=== PATIENT | female | born 1935 | race Caucasian/White ===

== ENCOUNTER 2017-04-08 14:53 | Inpatient (IN) | payer MEDICARE ==
[2017-04-08] MEDS ORDERED: ATORVASTATIN CALCIUM 80 MG TABLET PO SCH (19:00)
[2017-04-08] MEDS: DONEPEZIL HCL 5 MG TABLET PO SCH ×2 (19:29→21:22)
[2017-04-08] MEDS: APIXABAN 2.5 MG TABLET PO SCH ×2 (19:30→21:22)
[2017-04-08] MEDS: LEVOTHYROXINE SODIUM 25 MCG TABLET PO SCH ×2 (19:32)
[2017-04-08] MEDS: CHOLESTYRAMINE (WITH SUGAR) 4 GM PACKET PO SCH (21:14)
[2017-04-08] MEDS: HYDROcodone /APAP 5/325 1 EACH TABLET PO PRN (21:21)
[2017-04-08] MEDS: MEMANTINE HCL 10 MG TABLET PO SCH (21:22)
[2017-04-08] MEDS: FERROUS SULFATE 325 MG TABLET PO SCH (21:22)
[2017-04-08] MEDS: SENNOSIDES/DOCUSATE SODIUM 1 EACH TABLET PO SCH (21:22)
[2017-04-08] MEDS: SIMVASTATIN 20 MG TABLET PO SCH (21:22)
[2017-04-08 22:01] VITALS: BMI 34.2
[2017-04-09] MEDS ORDERED: FOLIC ACID 1 MG TABLET PO ONE (03:49)
[2017-04-09] MEDS: LEVOTHYROXINE SODIUM 25 MCG TABLET PO SCH ×2 (05:45→05:46)
[2017-04-09 07:05] LABS: BASOPHILS % 0.7 (0.0-1.5); EOSINOPHILS % 3.4 % (0.0-6.8); MEAN CORPUSCULAR HEMOGLOBIN 29.6 pg (28.0-34.0); MEAN CORPUSCULAR VOLUME 88.2 fl (80.0-100.0); MONOCYTES % 7.8 % (0.0-11.0)
[2017-04-09 07:19] LABS: eGFR (African) > 60; eGFR (Non-African) > 60
[2017-04-09] MEDS: LISINOPRIL 20 MG TABLET PO SCH (08:05)
[2017-04-09] MEDS: CITALOPRAM HYDROBROMIDE 20 MG TABLET PO SCH (08:05)
[2017-04-09] MEDS: APIXABAN 2.5 MG TABLET PO SCH ×2 (08:05→19:54)
[2017-04-09] MEDS: MEMANTINE HCL 10 MG TABLET PO SCH ×2 (08:05→19:53)
[2017-04-09] MEDS: MULTIVITAMIN 1 EACH TABLET PO SCH (08:06)
[2017-04-09] MEDS: SENNOSIDES/DOCUSATE SODIUM 1 EACH TABLET PO SCH ×2 (08:06→19:53)
[2017-04-09] MEDS: HYDROcodone /APAP 5/325 1 EACH TABLET PO PRN ×2 (08:12→17:42)
--- NOTE | 2017-04-09 08:54 | History and Physical Report ---
CHIEF COMPLAINT: Right femoral neck fracture. HISTORY OF PRESENT ILLNESS: This is an 81-year-old female who on April 03 was reaching down to pick something up at home or she may have had a vagal episode, but because of her dementia, it is very difficult to tell, but she did have a fall with immediate pain and a valgus deformity of her right hip. She was brought to the emergency room where she was noted to have a right hip fracture. She was taken to the operating room on April [address] Peacock at [facility] and had a right bipolar hemiarthroplasty done because of this fracture. Her postoperative course has actually been fairly unremarkable. She has not had very much pain. Although she has dementia, she has not had significant worsening of that. She remains extremely pleasant. She had no postoperative problems. Her hemoglobin has been stable with the most recent one having been done yesterday at 9.0. We will check that again tomorrow to make sure it is not dropping significantly. PAST MEDICAL HISTORY: Her past medical history is notable for: 1. History of allergic rhinitis. 2. Ankle edema. 3. Dementia. 4. Hyperlipidemia. 5. Hypothyroidism. 6. Irritable bowel syndrome. 7. Macular degeneration. 8. History of uterine cancer. PAST SURGICAL HISTORY: 1. Hysterectomy for uterine cancer. 2. Open reduction and internal fixation of right shoulder. 3. Right bipolar arthroplasty of the right hip. 4. Retinal laser surgery. 5. Vaginal delivery. CURRENT MEDICATIONS: 1. Acetaminophen/hydrocodone 5/325 mg one-half tablet p.o. every 4 hours p.r.n. pain. 2. Eliquis 2.5 mg p.o. b.i.d. 3. Senokot S 1 p.o. b.i.d. 4. Tylenol 325 mg p.o. every 4 hours p.r.n. pain. 5. Atorvastatin 10 mg daily. 6. Cholestyramine 4 grams by packet 1 b.i.d. 7. Citalopram 20 mg daily. 8. Donepezil 10 mg p.o. daily. 9. Ferrous sulfate 325 mg p.o. daily. 10. Levothyroxine 88 mcg daily. 11. Lisinopril 20 mg daily. 12. Namenda 10 mg p.o. b.i.d. 13. Multivitamin once daily. ALLERGIES: Tetracycline. SOCIAL HISTORY: She is a . Her [birth year] 07, 2015. She lives by herself. She is a [employer]. She is retired. She has very good support from her son, Tone, who lives in [place]. FAMILY HISTORY: Father at age 85 from arteriosclerosis and dementia. Mother in a fire when Mandy was only 3 years old. REVIEW OF SYSTEMS: She says she is actually not having very much pain. When I discussed her case with the resident today, he said that she had taken actually very little pain medication. She was participating in therapy there at the [facility] very well. She has had no fever, chills, nausea, or vomiting. Her hip pain is well controlled. PHYSICAL EXAMINATION: General: This is a very pleasant 81-year-old female who is alert and oriented. She appears to be in no acute distress. She is extremely talkative and eager to converse. Vital Signs: Her blood pressure is up a little bit at 159/64. The rest of her vitals have not yet been taken. HEENT: Shows her head to be normocephalic and atraumatic. Her hair is dyed. Her mucous membranes are moist. Her dentition looks like she has had cap come off on her right upper incisor just lateral to the medial incisor on the right. She has quite a bit of bridge and dental work. Neck: No JVD. No carotid bruits. No thyroid masses. Lungs: Clear. Heart: She has about a 2 over 6 systolic ejection murmur. Breast: Formal breast examination is deferred. Abdomen: Soft. No guarding or rebound. She has an infraumbilical scar, assuming that is from her hysterectomy. No CVA tenderness is noted. Extremities: Right hip wound is actually well approximated. It does not have any bleeding. No drainage. The bandage is fairly dry and certainly surrounding skin erythema. The alignment of her hip appears to be very good. The contralateral hip shows no evidence of any trauma. There is some bruising around the incision site. Both knees have some osteoarthritic changes but no scars to suggest previous knee replacement. Extremities are warm and well perfused. There is about 1+ edema bilaterally, a little bit worse on the right than on the left. Easily palpable dorsalis pedis and posterior tibial pulses are identified. ASSESSMENT: 1. Right hip fracture with result in bipolar arthroplasty. 2. Dementia, stable. 3. Hyperlipidemia. 4. Depression, currently on Citalopram. 5. Hypothyroidism. 6. Hypertension. 7. Macular degeneration. PLAN: 1. Physical therapy and occupational therapy are engaged. 2. She is currently on Eliquis 2.5 mg p.o. b.i.d. for DVT prophylaxis, as well as LOBO hose are placed. 3. We will discuss with Dr. Peacock as far as when he would like to have her stitches taken out of her right hip. 4. Her medications are all entered. MTDD
[2017-04-09] MEDS: CHOLESTYRAMINE (WITH SUGAR) 4 GM PACKET PO SCH (10:38)
[2017-04-09] MEDS: FERROUS SULFATE 325 MG TABLET PO SCH ×2 (10:38→19:53)
[2017-04-09] MEDS: ACETAMINOPHEN 325 MG TABLET PO PRN (11:05)
[2017-04-09] MEDS: DONEPEZIL HCL 5 MG TABLET PO SCH (19:53)
[2017-04-09] MEDS: SIMVASTATIN 20 MG TABLET PO SCH (19:57)
[2017-04-10] MEDS: HYDROcodone /APAP 5/325 1 EACH TABLET PO PRN ×3 (04:54→19:24)
[2017-04-10] MEDS: LEVOTHYROXINE SODIUM 25 MCG TABLET PO SCH ×2 (05:57→05:58)
[2017-04-10] MEDS: ACETAMINOPHEN 325 MG TABLET PO PRN (09:07)
[2017-04-10] MEDS: MEMANTINE HCL 10 MG TABLET PO SCH ×2 (09:09→19:25)
[2017-04-10] MEDS: APIXABAN 2.5 MG TABLET PO SCH ×2 (09:09→19:24)
[2017-04-10] MEDS: SENNOSIDES/DOCUSATE SODIUM 1 EACH TABLET PO SCH ×2 (09:10→19:25)
[2017-04-10] MEDS: CITALOPRAM HYDROBROMIDE 20 MG TABLET PO SCH (09:10)
[2017-04-10] MEDS: LISINOPRIL 20 MG TABLET PO SCH (09:11)
[2017-04-10] MEDS: MULTIVITAMIN 1 EACH TABLET PO SCH (09:12)
[2017-04-10] MEDS: CHOLESTYRAMINE (WITH SUGAR) 4 GM PACKET PO SCH (11:56)
[2017-04-10] MEDS: FERROUS SULFATE 325 MG TABLET PO SCH ×2 (11:56→19:24)
[2017-04-10] MEDS: DONEPEZIL HCL 5 MG TABLET PO SCH (19:24)
[2017-04-10] MEDS: SIMVASTATIN 20 MG TABLET PO SCH (19:25)
[2017-04-11] MEDS: LEVOTHYROXINE SODIUM 25 MCG TABLET PO SCH ×2 (06:35)
[2017-04-11] MEDS: APIXABAN 2.5 MG TABLET PO SCH ×2 (07:34→18:47)
[2017-04-11] MEDS: CITALOPRAM HYDROBROMIDE 20 MG TABLET PO SCH (07:35)
[2017-04-11] MEDS: MEMANTINE HCL 10 MG TABLET PO SCH ×2 (07:35→18:47)
[2017-04-11] MEDS: LISINOPRIL 20 MG TABLET PO SCH (07:35)
[2017-04-11] MEDS: MULTIVITAMIN 1 EACH TABLET PO SCH (07:36)
[2017-04-11] MEDS: SENNOSIDES/DOCUSATE SODIUM 1 EACH TABLET PO SCH ×2 (07:36→18:47)
[2017-04-11] MEDS: ACETAMINOPHEN 325 MG TABLET PO PRN ×2 (07:38→13:02)
[2017-04-11] MEDS: HYDROcodone /APAP 5/325 1 EACH TABLET PO PRN ×2 (09:05→18:45)
[2017-04-11] MEDS: CHOLESTYRAMINE (WITH SUGAR) 4 GM PACKET PO SCH (11:07)
[2017-04-11] MEDS: FERROUS SULFATE 325 MG TABLET PO SCH ×2 (11:07→18:46)
[2017-04-11] MEDS: SIMVASTATIN 20 MG TABLET PO SCH (18:47)
[2017-04-11] MEDS: DONEPEZIL HCL 5 MG TABLET PO SCH (18:47)
[2017-04-12] MEDS: ACETAMINOPHEN 325 MG TABLET PO PRN (03:36)
[2017-04-12] MEDS: LEVOTHYROXINE SODIUM 25 MCG TABLET PO SCH ×2 (05:57)
[2017-04-12] MEDS: APIXABAN 2.5 MG TABLET PO SCH ×2 (07:46→20:40)
[2017-04-12] MEDS: SENNOSIDES/DOCUSATE SODIUM 1 EACH TABLET PO SCH ×2 (07:46→20:39)
[2017-04-12] MEDS: MEMANTINE HCL 10 MG TABLET PO SCH ×2 (07:46→20:40)
[2017-04-12] MEDS: MULTIVITAMIN 1 EACH TABLET PO SCH (07:47)
[2017-04-12] MEDS: LISINOPRIL 20 MG TABLET PO SCH (07:47)
[2017-04-12] MEDS: CITALOPRAM HYDROBROMIDE 20 MG TABLET PO SCH (10:55)
[2017-04-12] MEDS: FERROUS SULFATE 325 MG TABLET PO SCH ×2 (11:11→17:37)
[2017-04-12] MEDS: CHOLESTYRAMINE (WITH SUGAR) 4 GM PACKET PO SCH (11:13)
[2017-04-12] MEDS: SIMVASTATIN 20 MG TABLET PO SCH (20:39)
[2017-04-12] MEDS: DONEPEZIL HCL 5 MG TABLET PO SCH (20:40)
[2017-04-13] MEDS: LEVOTHYROXINE SODIUM 25 MCG TABLET PO SCH ×2 (06:13)
[2017-04-13] MEDS: MULTIVITAMIN 1 EACH TABLET PO SCH (09:58)
[2017-04-13] MEDS: APIXABAN 2.5 MG TABLET PO SCH ×2 (09:58→20:06)
[2017-04-13] MEDS: MEMANTINE HCL 10 MG TABLET PO SCH ×2 (09:58→20:06)
[2017-04-13] MEDS: LISINOPRIL 20 MG TABLET PO SCH (09:58)
[2017-04-13] MEDS: CITALOPRAM HYDROBROMIDE 20 MG TABLET PO SCH (09:58)
[2017-04-13] MEDS: SENNOSIDES/DOCUSATE SODIUM 1 EACH TABLET PO SCH ×2 (09:58→20:07)
[2017-04-13] MEDS: FERROUS SULFATE 325 MG TABLET PO SCH ×2 (09:58→17:06)
[2017-04-13] MEDS: CHOLESTYRAMINE (WITH SUGAR) 4 GM PACKET PO SCH (12:00)
[2017-04-13] MEDS ORDERED: CHOLESTYRAMINE (WITH SUGAR) 4 GM PACKET PO SCH (19:00)
[2017-04-13] MEDS: SIMVASTATIN 20 MG TABLET PO SCH (20:06)
[2017-04-13] MEDS: DONEPEZIL HCL 5 MG TABLET PO SCH (20:06)
[2017-04-13] MEDS: ACETAMINOPHEN 325 MG TABLET PO PRN (20:08)
[2017-04-14] MEDS: LEVOTHYROXINE SODIUM 25 MCG TABLET PO SCH ×2 (06:09)
[2017-04-14] MEDS: CITALOPRAM HYDROBROMIDE 20 MG TABLET PO SCH (09:40)
[2017-04-14] MEDS: APIXABAN 2.5 MG TABLET PO SCH ×2 (09:40→19:49)
[2017-04-14] MEDS: MEMANTINE HCL 10 MG TABLET PO SCH ×2 (09:41→19:49)
[2017-04-14] MEDS: LISINOPRIL 20 MG TABLET PO SCH (09:42)
[2017-04-14] MEDS: MULTIVITAMIN 1 EACH TABLET PO SCH (09:43)
[2017-04-14] MEDS: SENNOSIDES/DOCUSATE SODIUM 1 EACH TABLET PO SCH ×2 (09:43→19:49)
[2017-04-14] MEDS: ACETAMINOPHEN 325 MG TABLET PO PRN (09:45)
[2017-04-14] MEDS: FERROUS SULFATE 325 MG TABLET PO SCH ×2 (12:02→18:03)
[2017-04-14] MEDS: CHOLESTYRAMINE (WITH SUGAR) 4 GM PACKET PO SCH (13:46)
[2017-04-14] MEDS: HYDROcodone /APAP 5/325 1 EACH TABLET PO PRN (19:48)
[2017-04-14] MEDS: SIMVASTATIN 20 MG TABLET PO SCH (19:48)
[2017-04-14] MEDS: DONEPEZIL HCL 5 MG TABLET PO SCH (19:49)
[2017-04-15] MEDS: LEVOTHYROXINE SODIUM 25 MCG TABLET PO SCH ×2 (06:05→06:06)
[2017-04-15] MEDS: APIXABAN 2.5 MG TABLET PO SCH ×2 (08:41→20:12)
[2017-04-15] MEDS: MEMANTINE HCL 10 MG TABLET PO SCH ×2 (08:41→20:12)
[2017-04-15] MEDS: LISINOPRIL 20 MG TABLET PO SCH (08:42)
[2017-04-15] MEDS: SENNOSIDES/DOCUSATE SODIUM 1 EACH TABLET PO SCH ×2 (08:42→20:12)
[2017-04-15] MEDS: MULTIVITAMIN 1 EACH TABLET PO SCH (08:42)
[2017-04-15] MEDS: CITALOPRAM HYDROBROMIDE 20 MG TABLET PO SCH (08:42)
[2017-04-15] MEDS: ACETAMINOPHEN 325 MG TABLET PO PRN ×2 (08:43→17:59)
[2017-04-15] MEDS: FERROUS SULFATE 325 MG TABLET PO SCH ×2 (12:00→20:12)
[2017-04-15] MEDS: CHOLESTYRAMINE (WITH SUGAR) 4 GM PACKET PO SCH (12:00)
[2017-04-15] MEDS: SIMVASTATIN 20 MG TABLET PO SCH (20:12)
[2017-04-15] MEDS: DONEPEZIL HCL 5 MG TABLET PO SCH (20:12)
[2017-04-16] MEDS: LEVOTHYROXINE SODIUM 25 MCG TABLET PO SCH ×2 (06:18)
[2017-04-16] MEDS: APIXABAN 2.5 MG TABLET PO SCH ×2 (08:31→20:38)
[2017-04-16] MEDS: CITALOPRAM HYDROBROMIDE 20 MG TABLET PO SCH (08:31)
[2017-04-16] MEDS: MEMANTINE HCL 10 MG TABLET PO SCH ×2 (08:31→20:38)
[2017-04-16] MEDS: SENNOSIDES/DOCUSATE SODIUM 1 EACH TABLET PO SCH ×2 (08:32→20:39)
[2017-04-16] MEDS: LISINOPRIL 20 MG TABLET PO SCH (08:32)
[2017-04-16] MEDS: MULTIVITAMIN 1 EACH TABLET PO SCH (08:33)
[2017-04-16] MEDS: ACETAMINOPHEN 325 MG TABLET PO PRN ×2 (08:35→20:40)
[2017-04-16] MEDS: CHOLESTYRAMINE (WITH SUGAR) 4 GM PACKET PO SCH (11:21)
[2017-04-16] MEDS: FERROUS SULFATE 325 MG TABLET PO SCH ×2 (11:21→18:42)
[2017-04-16] MEDS: DONEPEZIL HCL 5 MG TABLET PO SCH (20:37)
[2017-04-16] MEDS: SIMVASTATIN 20 MG TABLET PO SCH (20:39)
[2017-04-17] MEDS: LEVOTHYROXINE SODIUM 25 MCG TABLET PO SCH ×2 (06:23→06:24)
[2017-04-17] MEDS: ACETAMINOPHEN 325 MG TABLET PO PRN (08:21)
[2017-04-17] MEDS: APIXABAN 2.5 MG TABLET PO SCH ×2 (08:21→20:52)
[2017-04-17] MEDS: CITALOPRAM HYDROBROMIDE 20 MG TABLET PO SCH (08:21)
[2017-04-17] MEDS: SENNOSIDES/DOCUSATE SODIUM 1 EACH TABLET PO SCH ×2 (08:22→20:53)
[2017-04-17] MEDS: LISINOPRIL 20 MG TABLET PO SCH (08:22)
[2017-04-17] MEDS: MULTIVITAMIN 1 EACH TABLET PO SCH (08:22)
[2017-04-17] MEDS: MEMANTINE HCL 10 MG TABLET PO SCH ×2 (08:22→20:52)
[2017-04-17] MEDS: FERROUS SULFATE 325 MG TABLET PO SCH ×2 (10:57→18:23)
[2017-04-17] MEDS: CHOLESTYRAMINE (WITH SUGAR) 4 GM PACKET PO SCH (10:57)
[2017-04-17] MEDS: DONEPEZIL HCL 5 MG TABLET PO SCH (20:51)
[2017-04-17] MEDS: SIMVASTATIN 20 MG TABLET PO SCH (20:53)
[2017-04-18] MEDS: LEVOTHYROXINE SODIUM 25 MCG TABLET PO SCH ×2 (06:19→06:20)
[2017-04-18] MEDS: APIXABAN 2.5 MG TABLET PO SCH ×2 (08:36→20:22)
[2017-04-18] MEDS: CITALOPRAM HYDROBROMIDE 20 MG TABLET PO SCH (08:36)
[2017-04-18] MEDS: ACETAMINOPHEN 325 MG TABLET PO PRN ×2 (08:36→20:23)
[2017-04-18] MEDS: MULTIVITAMIN 1 EACH TABLET PO SCH (08:37)
[2017-04-18] MEDS: MEMANTINE HCL 10 MG TABLET PO SCH ×2 (08:37→20:22)
[2017-04-18] MEDS: SENNOSIDES/DOCUSATE SODIUM 1 EACH TABLET PO SCH ×2 (08:37→20:22)
[2017-04-18] MEDS: LISINOPRIL 20 MG TABLET PO SCH (08:37)
[2017-04-18] MEDS: CHOLESTYRAMINE (WITH SUGAR) 4 GM PACKET PO SCH (11:15)
[2017-04-18] MEDS: FERROUS SULFATE 325 MG TABLET PO SCH ×2 (11:15→18:20)
[2017-04-18] MEDS: DONEPEZIL HCL 5 MG TABLET PO SCH (20:21)
[2017-04-18] MEDS: SIMVASTATIN 20 MG TABLET PO SCH (20:22)
[2017-04-19] MEDS: ACETAMINOPHEN 325 MG TABLET PO PRN ×2 (02:38→08:17)
[2017-04-19] MEDS: LEVOTHYROXINE SODIUM 25 MCG TABLET PO SCH ×2 (05:53)
[2017-04-19] MEDS: MEMANTINE HCL 10 MG TABLET PO SCH ×2 (08:18→20:37)
[2017-04-19] MEDS: LISINOPRIL 20 MG TABLET PO SCH (08:18)
[2017-04-19] MEDS: SENNOSIDES/DOCUSATE SODIUM 1 EACH TABLET PO SCH ×2 (08:18→20:36)
[2017-04-19] MEDS: MULTIVITAMIN 1 EACH TABLET PO SCH (08:18)
[2017-04-19] MEDS: CITALOPRAM HYDROBROMIDE 20 MG TABLET PO SCH (08:18)
[2017-04-19] MEDS: APIXABAN 2.5 MG TABLET PO SCH ×2 (08:18→20:37)
[2017-04-19] MEDS: CHOLESTYRAMINE (WITH SUGAR) 4 GM PACKET PO SCH (11:43)
[2017-04-19] MEDS: FERROUS SULFATE 325 MG TABLET PO SCH ×2 (11:43→18:30)
[2017-04-19] MEDS: SIMVASTATIN 20 MG TABLET PO SCH (20:36)
[2017-04-19] MEDS: DONEPEZIL HCL 5 MG TABLET PO SCH (20:37)
[2017-04-20] MEDS: LEVOTHYROXINE SODIUM 25 MCG TABLET PO SCH ×2 (06:17)
[2017-04-20] MEDS: APIXABAN 2.5 MG TABLET PO SCH ×2 (09:08→20:03)
[2017-04-20] MEDS: CITALOPRAM HYDROBROMIDE 20 MG TABLET PO SCH (09:08)
[2017-04-20] MEDS: MEMANTINE HCL 10 MG TABLET PO SCH ×2 (09:08→20:02)
[2017-04-20] MEDS: LISINOPRIL 20 MG TABLET PO SCH (09:10)
[2017-04-20] MEDS: SENNOSIDES/DOCUSATE SODIUM 1 EACH TABLET PO SCH ×2 (09:11→20:03)
[2017-04-20] MEDS: HYDROcodone /APAP 5/325 1 EACH TABLET PO PRN (09:11)
[2017-04-20] MEDS: MULTIVITAMIN 1 EACH TABLET PO SCH (09:11)
[2017-04-20] MEDS: FERROUS SULFATE 325 MG TABLET PO SCH ×2 (11:34→18:26)
[2017-04-20] MEDS: CHOLESTYRAMINE (WITH SUGAR) 4 GM PACKET PO SCH (11:38)
[2017-04-20] MEDS: DONEPEZIL HCL 5 MG TABLET PO SCH (20:02)
[2017-04-20] MEDS: SIMVASTATIN 20 MG TABLET PO SCH (20:03)
[2017-04-21] MEDS: LEVOTHYROXINE SODIUM 25 MCG TABLET PO SCH ×2 (06:17→06:18)
[2017-04-21] MEDS: APIXABAN 2.5 MG TABLET PO SCH ×2 (09:24→20:20)
[2017-04-21] MEDS: MEMANTINE HCL 10 MG TABLET PO SCH ×2 (09:25→20:20)
[2017-04-21] MEDS: CITALOPRAM HYDROBROMIDE 20 MG TABLET PO SCH (09:25)
[2017-04-21] MEDS: SENNOSIDES/DOCUSATE SODIUM 1 EACH TABLET PO SCH ×2 (09:25→20:20)
[2017-04-21] MEDS: LISINOPRIL 20 MG TABLET PO SCH (09:26)
[2017-04-21] MEDS: MULTIVITAMIN 1 EACH TABLET PO SCH (09:26)
[2017-04-21] MEDS: CHOLESTYRAMINE (WITH SUGAR) 4 GM PACKET PO SCH (11:49)
[2017-04-21] MEDS: FERROUS SULFATE 325 MG TABLET PO SCH ×2 (11:49→18:02)
[2017-04-21] MEDS: DONEPEZIL HCL 5 MG TABLET PO SCH (20:19)
[2017-04-21] MEDS: SIMVASTATIN 20 MG TABLET PO SCH (20:21)
[2017-04-22] MEDS: LEVOTHYROXINE SODIUM 25 MCG TABLET PO SCH ×2 (06:27)
[2017-04-22] MEDS: CITALOPRAM HYDROBROMIDE 20 MG TABLET PO SCH (08:05)
[2017-04-22] MEDS: LISINOPRIL 20 MG TABLET PO SCH (08:05)
[2017-04-22] MEDS: APIXABAN 2.5 MG TABLET PO SCH ×2 (08:05→20:44)
[2017-04-22] MEDS: MEMANTINE HCL 10 MG TABLET PO SCH ×2 (08:05→20:44)
[2017-04-22] MEDS: MULTIVITAMIN 1 EACH TABLET PO SCH (08:06)
[2017-04-22] MEDS: SENNOSIDES/DOCUSATE SODIUM 1 EACH TABLET PO SCH ×2 (08:06→20:45)
--- NOTE | 2017-04-22 08:21 | Inpatient Progress Note ---
Subjective - Required Recertification Statement I anticipate X number of days because-include discharge plan: 5 - Review of Systems Events since last encounter: Mandy is doing well with therapy. She has some anxiety. She remains very pleasant and wants to please therapy. She denies any pain. General: Denies: Chills HEENT: Denies: Head Aches Pulmonary: Denies: Dyspnea, Cough Cardiovascular: Denies: Chest Pain, Palpitations Gastrointestinal: Denies: Nausea, Vomiting, Abdominal Pain Genitourinary: Denies: Dysuria Musculoskeletal: Denies: Neck Pain Neurological: Confusion (at baseline). Denies: Weakness, Numbness Objective - Exam Vitals and I&O: Vital Signs Temp 98.4 F 04/21/17 20:19 Pulse 66 04/21/17 20:19 Resp 18 04/21/17 21:00 BP 110/41 04/21/17 20:19 Pulse Ox 92 04/21/17 20:19 Intake & Output 04/21/17 04/21/17 04/22/17 11:59 23:59 11:59 Intake Total 480 740 Balance 480 740 Weight 83.5 kg Intake: Oral 480 740 Other: Voiding Method Toilet Toilet # Voids 1 3 2 General: Alert, Oriented to Person, Oriented to Place, Oriented to Time, Cooperative HEENT: Atraumatic, Nose Mucous membr. moist/[place] Neck: Supple, No JVD Lungs: Clear to auscultation Cardiovascular: Regular rate, Normal S1, Normal S2 Abdomen: Normal bowel sounds Extremities: Other (trace edema in right leg) Neurological: Normal speech Psych/Mental Status: Appropriate Affect. No: Intact Judgment - Results Results: Laboratory Results WBC 9.54 K/ul (4.00-12.00) 04/09/17 06:40 RBC 3.27 M/ul (3.90-5.20) L 04/09/17 06:40 Hgb 9.7 g/dL (12.0-16.0) L 04/09/17 06:40 Hct 28.9 % (34.5-46.5) L 04/09/17 06:40 MCV 88.2 fl (80.0-100.0) 04/09/17 06:40 MCH 29.6 pg (28.0-34.0) 04/09/17 06:40 MCHC 33.6 g/dL (30.0-36.0) 04/09/17 06:40 RDW 13.1 % (11.3-14.3) 04/09/17 06:40 Plt Count 253 K/mm3 (130-400) 04/09/17 06:40 Neut % (Auto) 72.9 % (39.0-79.0) 04/09/17 06:40 Lymph % (Auto) 12.8 % (16.0-50.0) L 04/09/17 06:40 [place] % (Auto) 7.8 % (0.0-11.0) 04/09/17 06:40 Eos % (Auto) 3.4 % (0.0-6.8) 04/09/17 06:40 Baso % (Auto) 0.7 (0.0-1.5) 04/09/17 06:40 Neut # (Auto) 7.0 # k/uL (1.4-7.7) 04/09/17 06:40 Lymph # (Auto) 1.2 # k/uL (0.6-4.0) 04/09/17 06:40 [place] # (Auto) 0.8 # k/uL (0.0-0.9) 04/09/17 06:40 Eos # (Auto) 0.3 # k/uL (0.0-0.6) 04/09/17 06:40 Baso # (Auto) 0.1 # k/uL (0.0-0.5) 04/09/17 06:40 Reactive Lymphs % 2.3 % (0.0-5.0) 04/09/17 06:40 Reactive Lymphs # 0.2 # k/uL (0.0-0.8) 04/09/17 06:40 Sodium 133 mmol/L (137-145) L 04/09/17 06:40 Potassium 3.9 mmol/L (3.5-5.1) 04/09/17 06:40 Chloride 102 mmol/L (98-107) 04/09/17 06:40 Carbon Dioxide 26 mmol/L (22-30) 04/09/17 06:40 BUN 26 mg/dL (7-17) H 04/09/17 06:40 Creatinine 0.90 mg/dL (0.52-1.04) 04/09/17 06:40 Estimated Creat Clear 77 04/09/17 06:40 Est GFR ( Amer) > 60 (60-) 04/09/17 06:40 Est GFR (Non-Af Amer) > 60 (60-) 04/09/17 06:40 Glucose 97 mg/dL (74-106) 04/09/17 06:40 Calcium 7.9 mg/dL (8.4-10.2) L 04/09/17 06:40 Total Bilirubin 0.3 mg/dL (0.2-1.3) 04/09/17 06:40 AST 42 U/L (15-46) 04/09/17 06:40 ALT 28 U/L (13-69) 04/09/17 06:40 Alkaline Phosphatase 78 U/L (38-126) 04/09/17 06:40 Total Protein 6.0 g/dL (6.3-8.2) L 04/09/17 06:40 Albumin 2.9 g/dL (3.5-5.0) L 04/09/17 06:40 Assessment/Plan - Assessment/Plan (1) History of right hip replacement Status: Acute Current Visit: Yes Assessment: Doing well with therapy (2) Dementia Status: Acute Current Visit: Yes Qualifiers: Dementia type: unspecified type Dementia behavioral disturbance: without behavioral disturbance Qualified Code(s): F03.90 - Unspecified dementia without behavioral disturbance Assessment: Continue current medications
[2017-04-22] MEDS: CHOLESTYRAMINE (WITH SUGAR) 4 GM PACKET PO SCH (10:48)
[2017-04-22] MEDS: FERROUS SULFATE 325 MG TABLET PO SCH ×2 (10:48→18:03)
[2017-04-22] MEDS: ACETAMINOPHEN 325 MG TABLET PO PRN (10:51)
[2017-04-22] MEDS: DONEPEZIL HCL 5 MG TABLET PO SCH (20:44)
[2017-04-22] MEDS: SIMVASTATIN 20 MG TABLET PO SCH (20:45)
[2017-04-23] MEDS: LEVOTHYROXINE SODIUM 25 MCG TABLET PO SCH ×2 (06:27)
[2017-04-23] MEDS: CITALOPRAM HYDROBROMIDE 20 MG TABLET PO SCH (08:10)
[2017-04-23] MEDS: APIXABAN 2.5 MG TABLET PO SCH ×2 (08:10→19:28)
[2017-04-23] MEDS: MULTIVITAMIN 1 EACH TABLET PO SCH (08:11)
[2017-04-23] MEDS: SENNOSIDES/DOCUSATE SODIUM 1 EACH TABLET PO SCH ×2 (08:11→19:28)
[2017-04-23] MEDS: MEMANTINE HCL 10 MG TABLET PO SCH ×2 (08:11→19:29)
[2017-04-23] MEDS: LISINOPRIL 20 MG TABLET PO SCH (08:11)
[2017-04-23] MEDS: CHOLESTYRAMINE (WITH SUGAR) 4 GM PACKET PO SCH (11:27)
[2017-04-23] MEDS: FERROUS SULFATE 325 MG TABLET PO SCH ×2 (11:27→18:02)
[2017-04-23] MEDS: DONEPEZIL HCL 5 MG TABLET PO SCH (19:28)
[2017-04-23] MEDS: SIMVASTATIN 20 MG TABLET PO SCH (19:29)
[2017-04-23] MEDS: ACETAMINOPHEN 325 MG TABLET PO PRN (23:05)
[2017-04-24] MEDS: LEVOTHYROXINE SODIUM 25 MCG TABLET PO SCH ×2 (06:26→06:27)
[2017-04-24] MEDS: CITALOPRAM HYDROBROMIDE 20 MG TABLET PO SCH (09:42)
[2017-04-24] MEDS: APIXABAN 2.5 MG TABLET PO SCH ×2 (09:42→19:56)
[2017-04-24] MEDS: MEMANTINE HCL 10 MG TABLET PO SCH ×2 (09:42→19:56)
[2017-04-24] MEDS: ACETAMINOPHEN 325 MG TABLET PO PRN (09:42)
[2017-04-24] MEDS: SENNOSIDES/DOCUSATE SODIUM 1 EACH TABLET PO SCH ×2 (09:42→19:56)
[2017-04-24] MEDS: MULTIVITAMIN 1 EACH TABLET PO SCH (09:43)
[2017-04-24] MEDS: LISINOPRIL 20 MG TABLET PO SCH (09:43)
[2017-04-24] MEDS: CHOLESTYRAMINE (WITH SUGAR) 4 GM PACKET PO SCH (11:49)
[2017-04-24] MEDS: FERROUS SULFATE 325 MG TABLET PO SCH ×2 (11:49→18:41)
[2017-04-24] MEDS: SIMVASTATIN 20 MG TABLET PO SCH (19:56)
[2017-04-24] MEDS: DONEPEZIL HCL 5 MG TABLET PO SCH (19:58)
[2017-04-25] MEDS: LEVOTHYROXINE SODIUM 25 MCG TABLET PO SCH ×2 (05:34→05:35)
[2017-04-25] MEDS: APIXABAN 2.5 MG TABLET PO SCH ×2 (08:03→20:47)
[2017-04-25] MEDS: CITALOPRAM HYDROBROMIDE 20 MG TABLET PO SCH (08:03)
[2017-04-25] MEDS: LISINOPRIL 20 MG TABLET PO SCH (08:04)
[2017-04-25] MEDS: MULTIVITAMIN 1 EACH TABLET PO SCH (08:04)
[2017-04-25] MEDS: MEMANTINE HCL 10 MG TABLET PO SCH ×2 (08:04→20:47)
[2017-04-25] MEDS: SENNOSIDES/DOCUSATE SODIUM 1 EACH TABLET PO SCH ×2 (08:06→20:47)
[2017-04-25] MEDS: FERROUS SULFATE 325 MG TABLET PO SCH ×2 (10:52→18:07)
[2017-04-25] MEDS: CHOLESTYRAMINE (WITH SUGAR) 4 GM PACKET PO SCH ×2 (10:52→10:57)
[2017-04-25] MEDS ORDERED: IPRATROPIUM/ALBUTEROL SULFATE 3 ML AMPUL.NEB NEB ONE (15:24)
[2017-04-25] MEDS: SIMVASTATIN 20 MG TABLET PO SCH (20:47)
[2017-04-25] MEDS: DONEPEZIL HCL 5 MG TABLET PO SCH (20:47)
[2017-04-26] MEDS: LEVOTHYROXINE SODIUM 25 MCG TABLET PO SCH ×2 (06:19)
[2017-04-26] MEDS: CITALOPRAM HYDROBROMIDE 20 MG TABLET PO SCH (08:22)
[2017-04-26] MEDS: MULTIVITAMIN 1 EACH TABLET PO SCH (08:22)
[2017-04-26] MEDS: SENNOSIDES/DOCUSATE SODIUM 1 EACH TABLET PO SCH ×2 (08:23→20:25)
[2017-04-26] MEDS: LISINOPRIL 20 MG TABLET PO SCH (08:23)
[2017-04-26] MEDS: APIXABAN 2.5 MG TABLET PO SCH ×2 (08:24→20:24)
[2017-04-26] MEDS: MEMANTINE HCL 10 MG TABLET PO SCH ×2 (08:24→20:24)
[2017-04-26] MEDS: CHOLESTYRAMINE (WITH SUGAR) 4 GM PACKET PO SCH (11:25)
[2017-04-26] MEDS: FERROUS SULFATE 325 MG TABLET PO SCH ×2 (11:26→18:28)
[2017-04-26] MEDS: DONEPEZIL HCL 5 MG TABLET PO SCH (20:24)
[2017-04-26] MEDS: SIMVASTATIN 20 MG TABLET PO SCH (20:25)
[2017-04-26] MEDS: ACETAMINOPHEN 325 MG TABLET PO PRN (22:20)
[2017-04-27] MEDS: ACETAMINOPHEN 325 MG TABLET PO PRN ×2 (06:08→21:07)
[2017-04-27] MEDS: LEVOTHYROXINE SODIUM 25 MCG TABLET PO SCH ×2 (06:09)
[2017-04-27] MEDS: APIXABAN 2.5 MG TABLET PO SCH ×2 (08:48→21:05)
[2017-04-27] MEDS: LISINOPRIL 20 MG TABLET PO SCH (08:48)
[2017-04-27] MEDS: MULTIVITAMIN 1 EACH TABLET PO SCH (08:48)
[2017-04-27] MEDS: SENNOSIDES/DOCUSATE SODIUM 1 EACH TABLET PO SCH ×2 (08:49→21:05)
[2017-04-27] MEDS: MEMANTINE HCL 10 MG TABLET PO SCH ×2 (08:49→21:05)
[2017-04-27] MEDS: CITALOPRAM HYDROBROMIDE 20 MG TABLET PO SCH (08:49)
[2017-04-27] MEDS: FERROUS SULFATE 325 MG TABLET PO SCH ×2 (11:31→21:05)
[2017-04-27] MEDS: CHOLESTYRAMINE (WITH SUGAR) 4 GM PACKET PO SCH (11:31)
[2017-04-27] MEDS: DONEPEZIL HCL 5 MG TABLET PO SCH (21:05)
[2017-04-27] MEDS: SIMVASTATIN 20 MG TABLET PO SCH (21:05)
[2017-04-28] MEDS: ACETAMINOPHEN 325 MG TABLET PO PRN (04:53)
[2017-04-28] MEDS: LEVOTHYROXINE SODIUM 25 MCG TABLET PO SCH ×2 (04:53)
[2017-04-28] MEDS: APIXABAN 2.5 MG TABLET PO SCH ×2 (09:08→19:57)
[2017-04-28] MEDS: MEMANTINE HCL 10 MG TABLET PO SCH ×2 (09:08→19:58)
[2017-04-28] MEDS: CITALOPRAM HYDROBROMIDE 20 MG TABLET PO SCH (09:08)
[2017-04-28] MEDS: LISINOPRIL 20 MG TABLET PO SCH (09:09)
[2017-04-28] MEDS: SENNOSIDES/DOCUSATE SODIUM 1 EACH TABLET PO SCH ×2 (09:09→19:58)
[2017-04-28] MEDS: MULTIVITAMIN 1 EACH TABLET PO SCH (09:09)
[2017-04-28] MEDS: CHOLESTYRAMINE (WITH SUGAR) 4 GM PACKET PO SCH (11:39)
[2017-04-28] MEDS: FERROUS SULFATE 325 MG TABLET PO SCH ×2 (11:39→18:04)
[2017-04-28] MEDS: DONEPEZIL HCL 5 MG TABLET PO SCH (19:57)
[2017-04-28] MEDS: SIMVASTATIN 20 MG TABLET PO SCH (19:58)
[2017-04-29] MEDS: LEVOTHYROXINE SODIUM 25 MCG TABLET PO SCH ×2 (06:14)
[2017-04-29] MEDS: CITALOPRAM HYDROBROMIDE 20 MG TABLET PO SCH (09:13)
[2017-04-29] MEDS: APIXABAN 2.5 MG TABLET PO SCH ×2 (09:13→20:16)
[2017-04-29] MEDS: MEMANTINE HCL 10 MG TABLET PO SCH ×2 (09:13→20:16)
[2017-04-29] MEDS: LISINOPRIL 20 MG TABLET PO SCH (09:14)
[2017-04-29] MEDS: MULTIVITAMIN 1 EACH TABLET PO SCH (09:14)
[2017-04-29] MEDS: SENNOSIDES/DOCUSATE SODIUM 1 EACH TABLET PO SCH ×2 (09:14→20:17)
--- NOTE | 2017-04-29 10:31 | Inpatient Progress Note ---
Subjective - Required Recertification Statement I anticipate X number of days because-include discharge plan: 2 - Review of Systems Events since last encounter: Mandy is ambulating well currently. She still has some pain, but she can ambulate all the way from her room the the therapy room without any difficulty. She remains very pleasant and works hard with therapy. The plan is for her to go to [facility] on Friday morning and have a follow up with Dr. Peacock on Friday. General: Denies: Chills HEENT: Denies: Head Aches Pulmonary: Denies: Dyspnea Cardiovascular: Denies: Chest Pain Musculoskeletal: Leg Pain (right hip) Objective - Exam Vitals and I&O: Vital Signs Temp 98.2 F 04/29/17 09:00 Pulse 72 04/29/17 09:00 Resp 18 04/29/17 09:00 BP 183/86 04/29/17 09:00 Pulse Ox 94 04/29/17 09:00 Intake & Output 04/28/17 04/28/17 04/29/17 11:59 23:59 11:59 Intake Total 600 880 240 Balance 600 880 240 Weight 79.832 kg Intake: Oral 600 880 240 Other: Voiding Method Toilet Toilet # Voids 3 1 3 General: Alert, Oriented to Person, Oriented to Place HEENT: Atraumatic, PERRLA Neck: Supple Lungs: Normal air movement Cardiovascular: Regular rate Neurological: Other (tentative gait with ambulation with the walker) Psych/Mental Status: Mental status NL (at baseline) - Results Results: Laboratory Results WBC 9.54 K/ul (4.00-12.00) 04/09/17 06:40 RBC 3.27 M/ul (3.90-5.20) L 04/09/17 06:40 Hgb 9.7 g/dL (12.0-16.0) L 04/09/17 06:40 Hct 28.9 % (34.5-46.5) L 04/09/17 06:40 MCV 88.2 fl (80.0-100.0) 04/09/17 06:40 MCH 29.6 pg (28.0-34.0) 04/09/17 06:40 MCHC 33.6 g/dL (30.0-36.0) 04/09/17 06:40 RDW 13.1 % (11.3-14.3) 04/09/17 06:40 Plt Count 253 K/mm3 (130-400) 04/09/17 06:40 Neut % (Auto) 72.9 % (39.0-79.0) 04/09/17 06:40 Lymph % (Auto) 12.8 % (16.0-50.0) L 04/09/17 06:40 [place] % (Auto) 7.8 % (0.0-11.0) 04/09/17 06:40 Eos % (Auto) 3.4 % (0.0-6.8) 04/09/17 06:40 Baso % (Auto) 0.7 (0.0-1.5) 04/09/17 06:40 Neut # (Auto) 7.0 # k/uL (1.4-7.7) 04/09/17 06:40 Lymph # (Auto) 1.2 # k/uL (0.6-4.0) 04/09/17 06:40 [place] # (Auto) 0.8 # k/uL (0.0-0.9) 04/09/17 06:40 Eos # (Auto) 0.3 # k/uL (0.0-0.6) 04/09/17 06:40 Baso # (Auto) 0.1 # k/uL (0.0-0.5) 04/09/17 06:40 Reactive Lymphs % 2.3 % (0.0-5.0) 04/09/17 06:40 Reactive Lymphs # 0.2 # k/uL (0.0-0.8) 04/09/17 06:40 Sodium 133 mmol/L (137-145) L 04/09/17 06:40 Potassium 3.9 mmol/L (3.5-5.1) 04/09/17 06:40 Chloride 102 mmol/L (98-107) 04/09/17 06:40 Carbon Dioxide 26 mmol/L (22-30) 04/09/17 06:40 BUN 26 mg/dL (7-17) H 04/09/17 06:40 Creatinine 0.90 mg/dL (0.52-1.04) 04/09/17 06:40 Estimated Creat Clear 77 04/09/17 06:40 Est GFR ( Amer) > 60 (60-) 04/09/17 06:40 Est GFR (Non-Af Amer) > 60 (60-) 04/09/17 06:40 Glucose 97 mg/dL (74-106) 04/09/17 06:40 Calcium 7.9 mg/dL (8.4-10.2) L 04/09/17 06:40 Total Bilirubin 0.3 mg/dL (0.2-1.3) 04/09/17 06:40 AST 42 U/L (15-46) 04/09/17 06:40 ALT 28 U/L (13-69) 04/09/17 06:40 Alkaline Phosphatase 78 U/L (38-126) 04/09/17 06:40 Total Protein 6.0 g/dL (6.3-8.2) L 04/09/17 06:40 Albumin 2.9 g/dL (3.5-5.0) L 04/09/17 06:40 Assessment/Plan - Assessment/Plan (1) History of right hip replacement Status: Acute Current Visit: Yes Assessment: Recovering well (2) Dementia Status: Acute Current Visit: Yes Qualifiers: Dementia type: unspecified type Dementia behavioral disturbance: without behavioral disturbance Qualified Code(s): F03.90 - Unspecified dementia without behavioral disturbance Assessment: Chronic/stable
[2017-04-29] MEDS: ACETAMINOPHEN 325 MG TABLET PO PRN ×2 (10:51→23:15)
[2017-04-29] MEDS: CHOLESTYRAMINE (WITH SUGAR) 4 GM PACKET PO SCH (12:20)
[2017-04-29] MEDS: FERROUS SULFATE 325 MG TABLET PO SCH ×2 (12:20→20:16)
[2017-04-29] MEDS ORDERED: WHITE PET TP PRN ×2 (14:33→16:00)
[2017-04-29] MEDS ORDERED: LANOLIN TP PRN ×2 (14:33→16:00)
[2017-04-29] MEDS ORDERED: [UNRECOGNIZED DRUG - OTHER] TP PRN ×2 (14:33→16:00)
[2017-04-29] MEDS ORDERED: VITS A TP PRN ×2 (14:33→16:00)
[2017-04-29] MEDS: DONEPEZIL HCL 5 MG TABLET PO SCH (20:16)
[2017-04-29] MEDS: SIMVASTATIN 20 MG TABLET PO SCH (20:17)
[2017-04-30] MEDS: LEVOTHYROXINE SODIUM 25 MCG TABLET PO SCH ×2 (06:03)
[2017-04-30] MEDS: CITALOPRAM HYDROBROMIDE 20 MG TABLET PO SCH (08:09)
[2017-04-30] MEDS: APIXABAN 2.5 MG TABLET PO SCH ×2 (08:10→19:55)
[2017-04-30] MEDS: MULTIVITAMIN 1 EACH TABLET PO SCH (08:10)
[2017-04-30] MEDS: LISINOPRIL 20 MG TABLET PO SCH (08:10)
[2017-04-30] MEDS: MEMANTINE HCL 10 MG TABLET PO SCH ×2 (08:10→19:55)
[2017-04-30] MEDS: SENNOSIDES/DOCUSATE SODIUM 1 EACH TABLET PO SCH ×2 (08:10→19:55)
[2017-04-30] MEDS: CHOLESTYRAMINE (WITH SUGAR) 4 GM PACKET PO SCH (11:15)
[2017-04-30] MEDS: FERROUS SULFATE 325 MG TABLET PO SCH ×2 (11:15→19:55)
[2017-04-30] MEDS: ACETAMINOPHEN 325 MG TABLET PO PRN (12:44)
[2017-04-30] MEDS: DONEPEZIL HCL 5 MG TABLET PO SCH (19:55)
[2017-04-30] MEDS: SIMVASTATIN 20 MG TABLET PO SCH (19:55)
[2017-05-01] MEDS: ACETAMINOPHEN 325 MG TABLET PO PRN ×3 (01:00→20:05)
[2017-05-01] MEDS ORDERED: CHOLESTYRAMINE (WITH SUGAR) 4 GM PACKET PO ONE (05:21)
[2017-05-01] MEDS: MEMANTINE HCL 10 MG TABLET PO SCH ×2 (09:11→20:02)
[2017-05-01] MEDS: APIXABAN 2.5 MG TABLET PO SCH ×2 (09:11→20:02)
[2017-05-01] MEDS: MULTIVITAMIN 1 EACH TABLET PO SCH (09:12)
[2017-05-01] MEDS: SENNOSIDES/DOCUSATE SODIUM 1 EACH TABLET PO SCH ×2 (09:12→20:02)
[2017-05-01] MEDS: LISINOPRIL 20 MG TABLET PO SCH (09:12)
[2017-05-01] MEDS: CITALOPRAM HYDROBROMIDE 20 MG TABLET PO SCH (09:13)
[2017-05-01] MEDS: LEVOTHYROXINE SODIUM 25 MCG TABLET PO SCH ×4 (09:13→11:10)
[2017-05-01] MEDS: FERROUS SULFATE 325 MG TABLET PO SCH ×2 (11:30→20:02)
[2017-05-01] MEDS: CHOLESTYRAMINE (WITH SUGAR) 4 GM PACKET PO SCH (11:30)
[2017-05-01] MEDS: DONEPEZIL HCL 5 MG TABLET PO SCH (20:02)
[2017-05-01] MEDS: SIMVASTATIN 20 MG TABLET PO SCH (20:02)
[2017-05-02] MEDS: LEVOTHYROXINE SODIUM 25 MCG TABLET PO SCH ×4 (06:49→08:03)
[2017-05-02] MEDS: CITALOPRAM HYDROBROMIDE 20 MG TABLET PO SCH (08:04)
[2017-05-02] MEDS: APIXABAN 2.5 MG TABLET PO SCH (08:04)
[2017-05-02] MEDS: MEMANTINE HCL 10 MG TABLET PO SCH (08:04)
[2017-05-02] MEDS: LISINOPRIL 20 MG TABLET PO SCH (08:04)
[2017-05-02] MEDS: SENNOSIDES/DOCUSATE SODIUM 1 EACH TABLET PO SCH (08:05)
[2017-05-02] MEDS: MULTIVITAMIN 1 EACH TABLET PO SCH (08:05)
[2017-05-02 10:02] VITALS: BP 150/71
--- NOTE | 2017-05-14 09:58 | Discharge Summary ---
DATE OF ADMISSION: April 08, 2017. DATE OF DISCHARGE: May 02, 2017 DIAGNOSES ON THIS HOSPITALIZATION: 1. Right hip fracture. 2. Dementia. 3. Hyperlipidemia. 4. Depression. 5. Hypertension. SUMMARIZATION OF ADMISSION HISTORY AND PHYSICAL: This is an 81-year-old female who had a fall and incurred a right intertrochanteric hip fracture. She was taken to the emergency room in [place] where Dr. Peacock at [facility] performed a right bipolar hemiarthroplasty. Her postoperative course had been unremarkable. She was placed on Eliquis 2.5 mg p.o. daily for DVT prophylaxis and came to our facility for ongoing therapy. HOSPITAL COURSE: Occupational therapy and physical therapy consults were obtained. She actually was very cooperative and did very well with therapy. She continued to be up and ambulating. She ate well. She was discharged on May 02 back to [facility], which was her usual place of residence. MEDICATIONS ON DISCHARGE: On discharge, her medications were: We stopped her Eliquis. 1. Questran 4 mg p.o. b.i.d. 2. Citalopram 20 mg daily. 3. Donepezil 10 mg p.o. daily. 4. Ferrous sulfate 325 mg p.o. b.i.d. 5. Levothyroxine 88 mcg daily. 6. Lisinopril 20 mg p.o. daily. 7. Namenda 10 mg p.o. b.i.d. 8. Multivitamin once daily. 9. Senokot S 1 p.o. b.i.d. 10. Simvastatin 20 mg p.o. daily. DISCHARGE INSTRUCTIONS: Home health consult for occupational therapy and physical therapy was ordered. KIRSTEN
== END 2017-05-02 09:15 | disposition home or self-care (01) | DRG 536 ==
LOC: SOUTH 14:53 → UNDOADMIN 14:53
PROVIDERS: ADMIT Family Medicine; ATTEND Family Medicine
DX: S72.001A Fracture of unspecified part of neck of right femur, initial encounter for closed fracture (principal); W19.XXXA Unspecified fall, initial encounter; F03.90 Unspecified dementia, unspecified severity, without behavioral disturbance, psychotic disturbance, mood disturbance, and anxiety; F32.9 Major depressive disorder, single episode, unspecified; E78.5 Hyperlipidemia, unspecified; E03.9 Hypothyroidism, unspecified; I10 Essential (primary) hypertension
CPT/HCPCS: 36415; 80053; 85025; 97110; 97112; 97116; 97161; 97165; 97530; 97535; A9270

== ENCOUNTER 2017-09-05 11:00 | Emergency (ER) | payer MEDICARE, OTHER ==
[2017-09-05] MEDS: KETOROLAC TROMETHAMINE 30 MG/1ML VIAL IVP ONE (11:25)
[2017-09-05 11:28] LABS: BASOPHILS % 0.6 (0.0-1.5); EOSINOPHILS % 2.1 % (0.0-6.8); MEAN CORPUSCULAR HEMOGLOBIN 29.2 pg (28.0-34.0); MEAN CORPUSCULAR VOLUME 93.8 fl (80.0-100.0); MONOCYTES % 5.7 % (0.0-11.0); NEUTROPHILS # 5.7 # k/uL (1.4-7.7)
[2017-09-05] MEDS: ASPIRIN 325 MG TABLET PO ONE (11:32)
[2017-09-05] MEDS: ASPIRIN EC 325 MG TABLET.DR ONE (11:32)
--- NOTE | 2017-09-05 11:35 | ED Physician Documentation ---
Chest Pain - HISTORIAN Historian: patient - HPI Stated Complaint: Right Upper Chest Pain- Reproducible Chief Complaint: Chest Pain Additional Information: chest pain at [facility], resolved now Onset: hours (2) Timing: sudden onset Duration: sudden-onset Last known Well Date: 09/04/17 Last Known Well Time: 12:00 Context: onset during:, activity (eating) Severity: moderate Quality: aching Front/Back of Body, Lg (Color): 1 - chest pain Chest Pain Radiation: no radiation Chest Pain Signs/Symptoms: denies: nausea, vomiting, diaphoresis, cool extremities, dizziness, dyspnea, tachypnea, tachycardia, hypotension, palpitations, weakness Worsened By: movement Relieved By: nothing Further Comments: no - ROS CONST: none MS/LYMPH: neck pain GI/: none EYES/ENT: none SKIN/ENDO: none NEURO/PSYCH: none - PAST HX WI risk factors: hypertension, other (hypothyroidism) DVT/PE Risk Factors: none TAD/AAA risk factors: none Neuro deficit: none GI disease: none Lung disease: none Surgeries/Procedures: none Immunizations: referred to PCP Allergies/Adverse Reactions: Allergies Allergy/AdvReac Type Severity Reaction Status Date / Time diphenhydramine Allergy Unknown Verified 09/05/17 11:12 guaifenesin [From Entex T] Allergy Verified 09/05/17 11:12 medroxyprogesterone acetate Allergy Verified 09/05/17 11:12 [From Provera] pseudoephedrine HCl Allergy Verified 09/05/17 11:12 [From Entex T] Tetracyclines AdvReac Intermediate Unknown Verified 09/05/17 11:12 Home Medications: Ambulatory Orders Medication Instructions Recorded Cholecalciferol [Vitamin D-3] 5,000 unit PO DAILY 09/05/17 - SOCIAL HX Smoking History: non-smoker Alcohol Use: none Drug Use: none - FAMILY HX Family HX: none - VITAL SIGNS Vital Signs: Vital Signs Temp Pulse Resp BP Pulse Ox 98 F 62 18 163/87 96 09/05/17 11:00 09/05/17 11:00 09/05/17 11:00 09/05/17 11:00 09/05/17 11:00 - REVIEWED ASSESSMENTS Nursing Assessment Reviewed: Yes Vitals Reviewed: Yes Progress - Results/Orders Results/Orders: cbc, bm, trop, cxr, pt/ptt/inr ordered - Progress Progress: pt. stable entire time in er, given 325 mg asa p.o. and 30 mg toradol iv with improvement of symptoms Critical Care Note - Critical Care Note Total Time (mins): 0 ED Results Lab/Radiology - Lab Results Lab Results: trop, bmp, cbc, pt/ptt/inr, ekg unremarkable - Radiology Radiology Impressions: cxr neg for infiltrate Chest Pain Physical Exam - EXAM General Appearance: no acute distress, alert EENT: eye inspection normal, ENT inspection normal, pharynx normal, no signs of dehydration, ULYSSES, no nystagmus, TM's nml Neck: nml inspection, no carotid bruit Respiratory: no resp. distress, nml breath sounds, other (reproduceable chest wall tenderness left pectoral area.) CVS: reg. rate & rhythm, no murmur Abdomen: soft, no organomegaly, normal bowel sounds, no abdominal bruit, no distension, non-tender Skin: warm/dry, normal color Extremities: non-tender, normal range of motion, no evidence of injury, no edema Neuro: oriented X3, CN's nml as tested, motor nml, sensation nml, mood/affect nml, cognition normal Discharge Clincal Impression: Pectoralis muscle strain Qualifiers: Encounter type: initial encounter Qualified Code(s): S29.011A - Strain of muscle and tendon of front wall of thorax, initial encounter Referrals: Supa Parker MD [Primary Care Provider] - 2 Days Comments: Discharged with recommendations to take tylenol 3x/day as needed for pectoral/ shoulder/neck pain Condition: Stable Disposition: 01 HOME, SELF-CARE Decision to Admit: NO Decision Time: 12:28
[2017-09-05 11:42] LABS: eGFR (African) > 60; eGFR (Non-African) > 60
[2017-09-05 12:57] VITALS: BP 149/62
--- NOTE | 2017-09-05 19:03 | Diagnostic Imaging Report ---
DAVID FOWLER [facility] [address] [facility] [address] [address] Report Submission Date: Sep 05, 2017 11:45:05 AM DIETARY SERVICES MANAGER Patient Study Name: DIMA MARIE Date: Sep 05, 2017 11:31:38 AM DIETARY SERVICES MANAGER Modality Type: DX Gender: F Description: CHEST : 35 Institution: [facility] Physician: DAVID FOWLER Examination: Portable chest History: Evaluate lungs. CHEST PAIN TODAY (Hx) Comparison exam: None available Findings: Single view of the chest demonstrates a normal cardiac and mediastinal silhouette. Lung [place] without focal infiltrate. No blunting of the costophrenic margins. Left proximal humeral fixation hardware. Articular degenerative changes. Impression: No acute pulmonary process. Electronically signed on Sep 05, 2017 11:45:05 AM DIETARY SERVICES MANAGER by: Alfredo CURTIS
== END 2017-09-05 12:50 | disposition home or self-care (01) ==
LOC: ED 11:00
DX: S29.011A Strain of muscle and tendon of front wall of thorax, initial encounter (principal); I10 Essential (primary) hypertension; E03.9 Hypothyroidism, unspecified; X58.XXXA Exposure to other specified factors, initial encounter; Y92.129 Unspecified place in nursing home as the place of occurrence of the external cause; Y93.9 Activity, unspecified
CPT/HCPCS: 71045; 80048; 84484; 85025; 85610; 85730; 93005; A9270; J1885; 96374; 99282; 99283; S1016

== ENCOUNTER 2018-10-12 14:40 | Outpatient (CLI) | payer MEDICARE, OTHER ==
[2018-10-12 18:31] LABS: BASOPHILS % 0.7 % (0.0-1.5); EOSINOPHILS % 2.3 % (0.0-6.8); MEAN CORPUSCULAR HEMOGLOBIN 30.3 pg (28.0-34.0); MONOCYTES % 5.1 % (0.0-11.0); NEUTROPHILS # 7.5 # k/uL (1.4-7.7)
[2018-10-12 18:33] LABS: eGFR (Non-African) > 60
== END 2018-10-12 14:50 ==
LOC: LABRHC 14:40
PROVIDERS: ATTEND Family Medicine
DX: I10 Essential (primary) hypertension (principal); E03.9 Hypothyroidism, unspecified
CPT/HCPCS: 36415; 80053; 84443; 85025

== ENCOUNTER 2019-06-07 14:54 | Inpatient (IN) | payer MEDICARE, OTHER ==
--- NOTE | 2019-06-07 15:10 | ED Physician Documentation ---
General Adult - HISTORIAN Historian: patient - HPI Stated Complaint: sick since sat Chief Complaint: General Adult Onset: days ago (4) Timing: still present Severity: mild Further Comments: yes (She is "sick" she is not able to fully answer the definition of sick she states arms hurt or butt hurts. She is not aware. No report from EMS or Staff. Shortness of breath was the call on the EMS phone) - ROS CONST: no problems - PAST HX Past History: COPD, hypertension Immunizations: UTD Allergies/Adverse Reactions: Allergies Allergy/AdvReac Type Severity Reaction Status Date / Time diphenhydramine Allergy Unknown Verified 06/07/19 15:42 guaifenesin [From Entex T] Allergy Verified 06/07/19 15:42 medroxyprogesterone acetate Allergy Verified 06/07/19 15:42 [From Provera] pseudoephedrine HCl Allergy Verified 06/07/19 15:42 [From Entex T] Tetracyclines AdvReac Intermediate Unknown Verified 06/07/19 15:42 Home Medications: Ambulatory Orders Medication Instructions Recorded Citalopram Hydrobromide 10 mg PO BID 06/07/19 [Citalopram HBr] - SOCIAL HX Smoking History: non-smoker Alcohol Use: none Drug Use: none - FAMILY HX Family History: No - VITAL SIGNS Vital Signs: Vital Signs Temp Pulse Resp BP Pulse Ox 149/62 09/05/17 12:50 - REVIEWED ASSESSMENTS Nursing Assessment Reviewed: Yes Vitals Reviewed: Yes Progress - Progress Progress: 1600: Mild improvement post neb. She still has shortness of air with talking or moving . Denies any chest pain DG General Adult Physical Exam - PHYSICAL EXAM GENERAL APPEARANCE: no distress EENT: eye inspection normal, pharynx normal, dry mucous membranes NECK: normal inspection RESPIRATORY: wheezes, rhonchi, other (mild resp distress with talking ) CVS: reg rate & rhythm, heart sounds normal ABDOMEN: soft, non-tender BACK: normal inspection SKIN: warm/dry EXTREMITIES: non-tender, edema NEURO: oriented X3 Discharge Clincal Impression: Pneumonia Qualifiers: Pneumonia type: due to unspecified organism Laterality: unspecified laterality Lung location: unspecified part of lung Qualified Code(s): J18.9 - Pneumonia, unspecified organism Referrals: Supa Parker MD [Primary Care Provider] - 2 Days Comments: 1621: discussed case with Dr Parker he will admit pt DG Condition: Fair Disposition: 09 ADMITTED INPATIENT Decision to Admit: [id number] Date of Decison to Admit: 06/07/19 Decision Time: 16:21
[2019-06-07] MEDS ORDERED: IPRATROPIUM/ALBUTEROL SULFATE 3 ML AMPUL.NEB NEB ONE (15:15)
[2019-06-07] MEDS ORDERED: methylPREDNISolone SOD SUCC 125 MG/2 ML VIAL IVP ONE (15:16)
--- NOTE | 2019-06-07 15:46 | Diagnostic Imaging Report ---
PATIENT MR#: [id number] PATIENT PATIENT NAME: DIMA MARIE DATE OF : 1935 REFERRING PHYSICIAN: Mere Isbell EXAM DATE: 06/07/2019 ACCESSION NUMBER: [id number] EXAM DESCRIPTION: CHEST 1VIEW Exam: AP chest. History: Cough and wheezing. No previous studies are available for comparison. Lung [place] are well aerated without thaddeus consolidation or effusion. Heart and mediastinal contour are normal. An orthopedic plate and screw device is noted at the left humerus. Impression: No thaddeus consolidation or effusion. Read by: Dr. Kranthi Husain Transcribed by: Transcribed Date: Electronically signed by: Dr. Kranthi Husain Date signed: 06/07/2019 3:45:58 PM
[2019-06-07 15:53] LABS: BASOPHILS % 0.4 % (0.0-1.5); NEUTROPHILS # 4.2 # k/uL (1.4-7.7)
[2019-06-07 15:58] LABS: eGFR (Non-African) > 60
[2019-06-07] MEDS ORDERED: FUROSEMIDE 20 MG/2 ML VIAL IVP ONE (16:14)
[2019-06-07] MEDS ORDERED: 0.9 % SODIUM CHLORIDE 1,000 ML IV ONE ×2 (16:22→16:24)
[2019-06-07] MEDS ORDERED: cefTRIAXone SODIUM 1 GM in 0.9 % SODIUM CHLORIDE 50 ML IV ONE (16:22)
[2019-06-07] MEDS ORDERED: 0.9 % SODIUM CHLORIDE 1,000 ML IV SCH (17:00)
[2019-06-07] MEDS ORDERED: ACETAMINOPHEN 325 MG TABLET PO PRN (17:04)
[2019-06-07 17:24] VITALS: BMI 31.1
[2019-06-07] MEDS ORDERED: AZITHROMYCIN 500 MG in 0.9 % SODIUM CHLORIDE 250 ML IV SCH (18:00)
[2019-06-07] MEDS: IPRATROPIUM/ALBUTEROL SULFATE 3 ML AMPUL.NEB NEB SCH ×2 (18:05→21:09)
--- NOTE | 2019-06-07 18:08 | History and Physical Report ---
History of Present Illnes - History of Present Illness Reason for Visit: Hypoxia, cough History of Present Illness: This is an 83 year old female well known to myself who presents to the ER with c/o cough and hypoxia. I was called by [facility] today and informed that she was coughing and that her oxygen saturation was only 85%. She was placed on 2LNC and it came up to the high 80s and then the 90s. It is now in the mid 90s on 2LNC. She has no history of COPD. She is a poor historian, abut feels like she was at about her baseline only yesterday, and this is corroborated by staff at [facility]. - Past Medical History Cardiac: HTN, Hyperlipidemia [employer]NAGER ADMINISTRATION: Dementia, Other (Macular degeneration) Gastrointestinal: Irritable bowel disease Endocrine: Hyperthyroidism - Past Surgical History Past Surgical History: Hysterectomy, Other (ORIF shoulder, retinal laser surgery, vaginal deliver) - Past Social History Smoke: No Alcohol: None Drugs: None Lives: Other ([facility]) Domestic Violence: Negative - Health Maintenance Health Maintenance: Cholesterol Influenza Vaccine: Current for this Influenza Season Pneumonia Vaccine: Yes Resuscitation Status: Resusciation Status Resuscitation Status Full Code - Unable to Obtain History Unable to Obtain: No Review of Systems - Review of Systems Constitutional: negative: Fever, Chills Eyes: negative: pain ENT: negative: Ear Pain Respiratory: Cough, Shortness of Breath, Sputum. negative: Hemoptysis Cardiovascular: negative: Chest Pain Gastrointestinal: negative: Nausea, Vomiting Genitourinary: negative: Dysuria Musculoskeletal: negative: Neck Pain Skin: negative: Rash Neurological: Weakness, Confusion (Chronic) - Medications/Allergies Allergies/Adverse Reactions: Allergies Allergy/AdvReac Type Severity Reaction Status Date / Time diphenhydramine Allergy Unknown Verified 06/07/19 15:42 guaifenesin [From Entex T] Allergy Verified 06/07/19 15:42 medroxyprogesterone acetate Allergy Verified 06/07/19 15:42 [From Provera] pseudoephedrine HCl Allergy Verified 06/07/19 15:42 [From Entex T] Tetracyclines AdvReac Intermediate Unknown Verified 06/07/19 15:42 Home Medications: Home Medications Citalopram Hydrobromide [Citalopram HBr] 10 mg PO BID 06/07/19 Current Inpatient Medications: Current Inpatient Medications Acetaminophen (Tylenol) 650 mg PO Q6H PRN PRN Reason: HEADAHCE Stop: 07/07/19 17:03 Albuterol/Ipratropium (Duoneb) 3 ml NEB Q4 ELLA Stop: 07/07/19 16:59 Atorvastatin Calcium (Lipitor) 10 mg PO DAILY ELLA Stop: 07/08/19 08:59 Budesonide (Pulmicort) 0.5 mg NEB BID ELLA Stop: 07/11/19 20:59 Cholestyramine Resin (Questran) 4 gm PO BID ELLA Stop: 07/07/19 20:59 Donepezil HCl (Aricept) 10 mg PO HS ELLA Stop: 07/07/19 20:59 Enoxaparin Sodium (Lovenox) 40 mg SQ DAILY ELLA Stop: 06/22/19 08:59 Furosemide (Lasix) 20 mg IVP QDAY ELLA Stop: 07/08/19 08:59 Sodium Chloride (Normal Saline) 1,000 mls @ 100 mls/hr IV NOW ONE Stop: 06/08/19 02:21 Azithromycin 500 mg/ Sodium (Chloride) 250 mls @ 250 mls/hr IV Q24H ELLA Stop: 06/11/19 18:59 Ceftriaxone Sodium 1 gm/ (Sodium Chloride) 50 mls @ 100 mls/hr IV DAILY ELLA Stop: 07/08/19 08:59 Sodium Chloride (Normal Saline) 1,000 mls @ 100 mls/hr IV Q10H ELLA Stop: 07/07/19 16:59 Levothyroxine Sodium (Synthroid) 88 mcg PO DAILY ELLA Stop: 07/08/19 08:59 Lisinopril (Prinivil) 20 mg PO DAILY ELLA Stop: 07/08/19 08:59 Memantine (Namenda) 10 mg PO BID ELLA Stop: 07/07/19 20:59 Exam - Exam Vital Signs: Vital Signs (72 hours) 06/07/19 06/07/19 06/07/19 14:55 15:11 16:05 Temperature 98.3 F Pulse Rate 59 L 62 Pulse Rate [ 65 Left Pulse ox] Respiratory 27 H Rate Blood Pressure 199/84 [Left Arm] O2 Sat by Pulse 90 L Oximetry 06/07/19 06/07/19 06/07/19 16:45 16:48 16:57 Temperature 98.2 F 98.5 F Pulse Rate 58 L Pulse Rate [ 74 62 Left Pulse ox] Respiratory 21 20 Rate Blood Pressure 168/65 179/72 [Left Arm] O2 Sat by Pulse 98 98 98 Oximetry 06/07/19 06/07/19 06/07/19 17:00 17:15 17:17 Temperature 98.5 F 98.5 F Pulse Rate 63 Pulse Rate [ 62 62 Left Pulse ox] Respiratory 20 20 Rate Blood Pressure 179/72 179/72 [Left Arm] O2 Sat by Pulse 98 98 Oximetry 06/07/19 06/07/19 06/07/19 17:45 17:48 17:53 Temperature 98.2 F Pulse Rate 63 61 Pulse Rate [ 60 Left Pulse ox] Respiratory 20 Rate Blood Pressure 151/81 [Left Arm] O2 Sat by Pulse 95 95 Oximetry General: Alert, Oriented to Person HEENT: Atraumatic, PERRLA Neck: No: Stridor Lungs: Respiratory Distress, Wheezes, Rhonchi Cardiovascular: Regular rate Murmur: No: Systolic Murmur Abdomen: Normal bowel sounds, Soft, No tenderness Genitourinary: No: Other Male Genitourinary: No: Other Female Genitourinary: No: Other Integumentary: Normal, [place], Warm, Dry Extremities: No clubbing, No cyanosis. No: No edema (2+ edema) Neurological: Normal gait Psych/Mental Status: Other (At baseline) - Laboratory Results Laboratory Results: Laboratory Results 06/07/19 06/07/19 15:13 15:13 WBC 7.90 RBC 4.00 Hgb 12.1 Hct 37.1 MCV 93.0 MCH 30.3 MCHC 32.7 RDW 11.2 L Plt Count 256 Neut % (Auto) 54.0 Lymph % (Auto) 31.8 [place] % (Auto) 10.5 Eos % (Auto) 3.3 Baso % (Auto) 0.4 Neut # (Auto) 4.2 Lymph # (Auto) 2.5 [place] # (Auto) 0.8 Eos # (Auto) 0.3 Baso # (Auto) 0.0 Sodium 139 Potassium 3.9 Chloride 97 L Carbon Dioxide 31 H Anion Gap 14.9 BUN 16 Creatinine 0.90 Estimated Creat Clear 71 Est GFR ( Amer) > 60 Est GFR (Non-Af Amer) > 60 Glucose 97 Calcium 8.9 Total Bilirubin 0.3 AST 41 ALT 15 Alkaline Phosphatase 86 NT-Pro-B Natriuret Pep 951.8 H Total Protein 7.6 Albumin 4.2 Assessment/Plan - Assessment/Plan (1) Pneumonia Status: Acute Current Visit: Yes Qualifiers: Pneumonia type: due to unspecified organism Laterality: unspecified laterality Lung location: unspecified part of lung Qualified Code(s): J18.9 - Pneumonia, unspecified organism Assessment: Continue ceftriaxone and rocephin (2) Hypoxemia Status: Acute Current Visit: Yes Assessment: Currently with oxygen saturations at 90+ percent on 2LNC (3) Dementia Status: Acute Current Visit: No Qualifiers: Dementia type: unspecified type Dementia behavioral disturbance: without behavioral disturbance Qualified Code(s): F03.90 - Unspecified dementia without behavioral disturbance Assessment: Continue Aricept and Namenda VTE Assessment - RISK FACTOR SCORE VTE RISK FACTOR SCORES: AGE OVER 60 YEARS, ACUTE INFECTION OTHER THEN SEPSIS (On Lovenox)
[2019-06-07] MEDS ORDERED: AZITHROMYCIN 500 MG VIAL IV ONE (18:24)
[2019-06-07] MEDS ORDERED: 0.9 % SODIUM CHLORIDE 250 ML IV ONE (18:24)
[2019-06-07] MEDS ORDERED: CHOLESTYRAMINE (WITH SUGAR) 4 GM PACKET PO SCH (21:00)
[2019-06-07] MEDS ORDERED: DONEPEZIL HCL 5 MG TABLET PO SCH (21:00)
[2019-06-07] MEDS: MEMANTINE HCL 10 MG TABLET PO SCH (21:02)
[2019-06-07] MEDS: BUDESONIDE 0.5MG/2ML AMPUL.NEB NEB SCH (21:05)
[2019-06-08] MEDS: IPRATROPIUM/ALBUTEROL SULFATE 3 ML AMPUL.NEB NEB SCH ×4 (00:48→12:30)
--- NOTE | 2019-06-08 06:54 | Diagnostic Imaging Report ---
PATIENT MR#: [id number] PATIENT PATIENT NAME: DIMA MARIE DATE OF : 1935 REFERRING PHYSICIAN: Supa Parker EXAM DATE: 06/08/2019 ACCESSION NUMBER: [id number] EXAM DESCRIPTION: CHEST 2VIEW HISTORY: 83-year-old female with pneumonia. COMPARISON: Chest x-ray from the previous day. TECHNIQUE: 2 views of the chest were performed. FINDINGS: No pneumothorax, consolidative infiltrates, pleural effusions, or pulmonary edema. The hea rt is not enlarged. 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 There are partially visualized postoperative changes of left proximal humeral fixation. IMPRESSION: No acute intrathoracic process identified. Read by: Dr. David Powers Transcribed by: Transcribed Date: Electronically signed by: Dr. David Powers Date signed: 06/08/2019 6:53:59 AM
[2019-06-08 07:40] LABS: BASOPHILS % 0.5 % (0.0-1.5)
[2019-06-08 07:41] LABS: NEUTROPHILS # 6.7 # k/uL (1.4-7.7); SEGMENTED NEUTROPHILS % 88 % (39-79)
[2019-06-08] MEDS ORDERED: cefTRIAXone SODIUM 1 GM INJ ONE (07:41)
[2019-06-08 07:42] LABS: PLT EST. EST. AGREES W/PLT CT
[2019-06-08 07:45] LABS: eGFR (Non-African) > 60
[2019-06-08] MEDS ORDERED: 0.9 % SODIUM CHLORIDE 50 ML IV ONE (07:52)
[2019-06-08] MEDS: MEMANTINE HCL 10 MG TABLET PO SCH (08:50)
[2019-06-08] MEDS: BUDESONIDE 0.5MG/2ML AMPUL.NEB NEB SCH (08:50)
[2019-06-08] MEDS ORDERED: FUROSEMIDE 20 MG/2 ML VIAL IVP SCH (09:00)
[2019-06-08] MEDS ORDERED: cefTRIAXone SODIUM 1 GM in 0.9 % SODIUM CHLORIDE 50 ML IV SCH (09:00)
[2019-06-08] MEDS ORDERED: LEVOTHYROXINE SODIUM 88 MCG TABLET PO SCH (09:00)
[2019-06-08] MEDS ORDERED: LISINOPRIL 20 MG TABLET PO SCH (09:00)
[2019-06-08] MEDS ORDERED: ENOXAPARIN SODIUM 40 MG/0.4 ML DISP.SYRIN SQ SCH (09:00)
--- NOTE | 2019-06-08 11:43 | Discharge Summary ---
Discharge Summary - Discharge [place] Admission Date: 06/07/19 Discharge Date: 06/09/19 Discharge To: Other ([facility]) History of Present Illness: 83 year old female admitted with hypoxia and mild dyspnea. She had been coughing and her oxygen saturation was in the high 80s. She was seen in the ER and her oxygen saturations came up to the low 90s with 2 LNC. Her CXR failed to show any infiltrate. Condition at Discharge: Stable Home Medications: Ambulatory Orders Medication Instructions Recorded Citalopram Hydrobromide 10 mg PO BID 06/07/19 [Citalopram HBr] Consultations this Visit: None Procedures this Visit: None Allergies/Adverse Reactions: Allergies Allergy/AdvReac Type Severity Reaction Status Date / Time diphenhydramine Allergy Unknown Verified 06/07/19 15:42 guaifenesin [From Entex T] Allergy Verified 06/07/19 15:42 medroxyprogesterone acetate Allergy Verified 06/07/19 15:42 [From Provera] pseudoephedrine HCl Allergy Verified 06/07/19 15:42 [From Entex T] Tetracyclines AdvReac Intermediate Unknown Verified 06/07/19 15:42 Patient Problems: Current Active Problems Problem Status Onset Hypoxemia Acute Pneumonia Acute Hospital Course: She was admitted and placed on IV rocephin and azithromycin. She improved markedly and was discharged to home on June 08, 2019 with continuation of ceftin 250 mg po BID x 7 days and resumption of all medications as prior to admission..
[2019-06-08] MEDS ORDERED: CHOLESTYRAMINE (WITH SUGAR) 4 GM PACKET PO SCH (12:00)
[2019-06-08 13:11] VITALS: BP 144/74
[2019-06-08] MEDS ORDERED: ATORVASTATIN CALCIUM 10 MG TABLET PO SCH (21:00)
== END 2019-06-08 13:20 | disposition home or self-care (01) | DRG 195 ==
LOC: ED 14:54 → SOUTH 16:38
PROVIDERS: ADMIT Family Medicine; ATTEND Family Medicine
DX: J18.9 Pneumonia, unspecified organism (principal); I10 Essential (primary) hypertension; R09.02 Hypoxemia; E78.5 Hyperlipidemia, unspecified; F03.90 Unspecified dementia, unspecified severity, without behavioral disturbance, psychotic disturbance, mood disturbance, and anxiety; K58.9 Irritable bowel syndrome, unspecified; E05.90 Thyrotoxicosis, unspecified without thyrotoxic crisis or storm; H35.30 Unspecified macular degeneration; Z88.1 Allergy status to other antibiotic agents; Z88.8 Allergy status to other drugs, medicaments and biological substances; Z79.899 Other long term (current) drug therapy; Z90.710 Acquired absence of both cervix and uterus; Z96.641 Presence of right artificial hip joint
CPT/HCPCS: 71045; 71046; 80053; 83880; 85025; 87040; 93005; 94640; 94760; 99221; 99238; J0456; J0696; J1650; J1940; J2930; J7050; J7626; S1016